=== PATIENT | female | born 1955 | race Caucasian/White ===

== ENCOUNTER 2018-01-21 14:15 | Emergency (ER) | payer MEDICARE, MEDICAID ==
[~2018-01-21 14:15] MED LIST: CEPH-460 PO; INSU1.2I SQ; LIPI40TA PO; LYRI200C PO; METF-382 PO; PAXI40TA PO; PHEN0.4T PO; PROM25TA5 PO; SERO200T PO
[2018-01-21 14:36] VITALS: BP 145/90; PULSE 76; RESP 16; TEMP 98.5; O2SAT 95
[2018-01-21 16:33] LABS: AUTOMATED NEUTROPHIL # 9.3 TH/MM3 (1.8-7.7); BASOPHIL % 0.2 % (0.0-2.0); HEMATOCRIT 43.8 % (35.0-46.0); LYMPH % 7.8 % (9.0-44.0); LYMPHOCYTE # 0.9 TH/MM3 (1.0-4.8); MEAN CELL VOLUME 90.6 FL (80.0-100.0); MEAN CORPUSCULAR HGB CONC 34.2 % (32.0-36.0); MEAN PLATELET VOLUME 7.9 FL (7.0-11.0); MONO % 8.5 % (0.0-8.0); MONOCYTE # 0.9 TH/MM3 (0-0.9); NEUT % 83.5 % (16.0-70.0); PLATELET COUNT 284 TH/MM3 (150-450); RED BLOOD COUNT 4.84 MIL/MM3 (4.00-5.30); RED CELL DISTRIBUTION WIDTH 13.8 % (11.6-17.2); WHITE BLOOD COUNT 11.1 TH/MM3 (4.0-11.0)
[2018-01-21 16:43] LABS: BACTERIA, URINE MANY /hpf; BILIRUBIN, URINE NEG (NEG); BLOOD, URINE MOD (NEG); GLUCOSE,URINE 70 mg/dL (NEG); HYALINE CAST, URINE 2 /lpf (RARE); KETONE, URINE NEG (NEG); MUCUS URINE FEW /lpf (OCC); NITRITE,URINE NEG (NEG); SQUAMOUS EPITHELIAL CELL URINE 2 /hpf (0-5); URINE COLOR YELLOW (YELLW/STRAW); URINE LEUKOCYTE ESTERASE NEG (NEG)
[2018-01-21 16:45] LABS: PROTHROMBIN TIME - PATIENT 10.3 SEC (9.8-11.6)
[2018-01-21 17:01] LABS: ALBUMIN 4.2 GM/DL (3.4-5.0); AST (GOT) 70 U/L (15-37); BICARBONATE 27.5 MEQ/L (21.0-32.0); BLOOD UREA NITROGEN 10 MG/DL (7-18); CALCIUM 9.5 MG/DL (8.5-10.1); CHLORIDE 104 MEQ/L (98-107); CREATININE 0.94 MG/DL (0.50-1.00); GLOMERULAR FILTRATION RATE 61 ML/MIN (>89); GLUCOSE,RANDOM 145 MG/DL (74-106); SODIUM (NA) 140 MEQ/L (136-145)
[2018-01-21 17:03] LABS: ALKALINE PHOSPHATASE 136 U/L (45-117); ALT (GPT) 94 U/L (10-53); TOTAL BILIRUBIN ADULT 0.3 MG/DL (0.2-1.0); TOTAL PROTEIN 8.3 GM/DL (6.4-8.2)
[2018-01-21] MEDS ORDERED: SODIUM CHLOR 0.9% 1000 ML INJ 1,000 ML IV SCH (17:35)
[2018-01-21] MEDS ORDERED: FAMOTIDINE 20 MG/2 ML VIAL IV PUSH ONE (17:45)
[2018-01-21] MEDS ORDERED: ONDANSETRON HCL 4 MG/2 ML VIAL IVP ONE (17:45)
[2018-01-21] MEDS ORDERED: MORPHINE SULFATE 4 MG/ML INJ IV PUSH ONE (17:45)
[2018-01-21] MEDS ORDERED: SODIUM CHLORIDE 0.9% FLUSH 10 ML FLUSH IV FLUSH PRN (17:45)
--- NOTE | 2018-01-21 17:47 | PD ---
HPI Chief Complaint: Abdominal Pain Time Seen by Provider: 17:28 Travel History International Travel<30 days: No Contact w/Intl Traveler<30days: No History of Present Illness HPI The patient is a 62-year-old female who presents to the emergency department via private vehicle for abdominal pain. Patient is a 3 day history of abdominal pain which is located mostly in epigastrium, nonradiating, but is associated with nausea and vomiting. Patient does note decreased appetite secondary to intractable nausea and vomiting. The patient denies any diarrhea or lower abdominal pain. The patient does have a previous history of cholecystectomy, appendectomy, and section. She denies any known history of pancreatitis. The patient also notes a headache, fever of 100.4 yesterday, and some generalized fatigue. She denies any new cough, but does have a history of chronic cough secondary to tobacco use. The patient's last cigarette was 2 days ago. The patient denies any dysuria, frequency, or urgency. There are no sick family members at home with similar symptoms. The patient did receive an influenza vaccination this year. PFSH Past Medical History COPD: Yes Diabetes: Yes Diminished Hearing: No Fibromyalgia: Yes Immunizations Current: Yes Past Surgical History Appendectomy: Yes Section: Yes (X3) Cholecystectomy: Yes Joint Replacement: Yes (BILATERAL KNEE REPLACEMENTS) Social History Alcohol Use: No Tobacco Use: Yes (1/2 ppd) Substance Use: No Allergies-Medications (Allergen,Severity, Reaction): Coded Allergies: aspirin (Unverified Adverse Reaction, Intermediate, HIVES, 05/29/17) ibuprofen (Unverified Adverse Reaction, Intermediate, HIVES, 05/29/17) Reported Meds & Prescriptions Reported Meds & Active Scripts Active Pyridium (Phenazopyridine HCl) 100 Mg Tab 100 Mg PO Q8H PRN Ventolin Hfa 18 GM Inh (Albuterol Sulfate) 90 Mcg/Act Aer 2 Puff INH Q4-6H PRN Phenergan (Promethazine HCl) 25 Mg Tablet 25 Mg PO Q6H PRN Keflex (Cephalexin) 500 Mg Capsule 500 Mg PO Q6H 10 Days Reported Aurelio Sierra Pen Inj (Insulin Glargine) 300 Unit/Ml Pen 1 Units SQ Seroquel (Quetiapine Fumarate) 200 Mg Tab 200 Mg PO HS Lyrica (Pregabalin) 200 Mg Cap 200 Mg PO BID Metformin ER (Metformin HCl) 1,000 Mg Yvonne 1,000 Mg PO BID With evening meal Lipitor (Atorvastatin Calcium) 40 Mg Tab 40 Mg PO HS Review of Systems Except as stated in HPI: all other systems reviewed are Neg General / Constitutional: Positive: Fever HENT: Positive: Headaches Cardiovascular: No: Chest Pain or Discomfort Respiratory: Positive: Cough, Shortness of Breath Gastrointestinal: Positive: Nausea, Vomiting, Abdominal Pain, No: Diarrhea Genitourinary: No: Dysuria Musculoskeletal: Positive: Weakness Neurologic: No: Dizziness Physical Exam Narrative GENERAL: Awake, alert, pleasant 62-year-old female who appears her stated age and is in no acute respiratory distress. SKIN: Focused skin assessment warm/dry. HEAD: Atraumatic. Normocephalic. EYES: Pupils equal and round. No scleral icterus. No injection or drainage. ENT: No nasal bleeding or discharge. Slightly dry mucous membranes. NECK: Trachea midline. No JVD. CARDIOVASCULAR: Regular rate and rhythm. No murmur appreciated. RESPIRATORY: No accessory muscle use. Clear to auscultation. Breath sounds equal bilaterally. GASTROINTESTINAL: Abdomen soft, tender to palpation epigastrium. No guarding or rigidity. MUSCULOSKELETAL: No obvious deformities. No clubbing. No cyanosis. No edema. Well-healed scar over the knees bilaterally. NEUROLOGICAL: Awake and alert. No obvious cranial nerve deficits. Motor grossly within normal limits. Normal speech. PSYCHIATRIC: Appropriate mood and affect; insight and judgment normal. Data Data Last Documented VS Vital Signs Date Time Temp Pulse Resp B/P (MAP) Pulse Ox O2 Delivery O2 Flow Rate FiO2 01/21/18 23:07 01/21/18 23:00 72 23 98 Room Air 01/21/18 14:36 98.5 Orders Orders Complete Blood Count With Diff (01/21/18 14:38) Comprehensive Metabolic Panel (01/21/18 14:38) Lipase (01/21/18 14:38) Lactic Acid (01/21/18 14:38) Urinalysis - C+S If Indicated (01/21/18 14:38) Prothrombin Time / Inr (Pt) (01/21/18 14:39) Act Partial Throm Time (Ptt) (01/21/18 14:39) Urine Culture (01/21/18 16:10) Ct Abd/Pel W/O Iv Contrast (01/21/18 17:35) Iv Access Insert/Monitor (01/21/18 17:35) Ecg Monitoring (01/21/18 17:35) Oximetry (01/21/18 17:35) Morphine Inj (Morphine Inj) (01/21/18 17:45) Ondansetron Inj (Zofran Inj) (01/21/18 17:45) Sodium Chlor 0.9% 1000 Ml Inj (Ns 1000 M (01/21/18 17:35) Sodium Chloride 0.9% Flush (Ns Flush) (01/21/18 17:45) Electrocardiogram (01/21/18 17:35) Chest, Single Ap (01/21/18 17:35) Famotidine Inj (Pepcid Inj) (01/21/18 17:45) Troponin I (01/21/18 17:35) Creatine Kinase (Cpk) (01/21/18 17:35) CKMB (01/21/18 16:25) CKMB% (01/21/18 16:25) Morphine Inj (Morphine Inj) (01/21/18 20:45) Albuterol-Ipratropium Neb (Duoneb Neb) (01/21/18 20:45) Ceftriaxone Inj (Rocephin Inj) (01/21/18 20:45) D-Dimer (01/21/18 21:06) Ct Pulmonary Angiogram (01/21/18 ) Iohexol 350 Inj (Omnipaque 350 Inj) (01/21/18 22:44) Azithromycin (Zithromax) (01/21/18 23:00) Ed Discharge Order (01/21/18 22:59) Labs Laboratory Tests Test 01/21/18 16:10 01/21/18 16:20 01/21/18 16:25 01/21/18 21:30 Urine Color YELLOW Urine Turbidity CLEAR Urine pH 6.0 Urine Specific [place] 1.028 Urine Protein 100 mg/dL Urine Glucose (UA) 70 mg/dL Urine Ketones NEG mg/dL Urine Occult Blood MOD Urine Nitrite NEG Urine Bilirubin NEG Urine Urobilinogen LESS THAN 2.0 MG/DL Urine Leukocyte Esterase NEG Urine RBC 41 /hpf Urine WBC 3 /hpf Urine Squamous Epithelial Cells 2 /hpf Urine Bacteria MANY /hpf Urine Hyaline Casts 2 /lpf Urine Mucus FEW /lpf Microscopic Urinalysis Comment CULTURE INDICATED Lactic Acid Level 1.8 mmol/L White Blood Count 11.1 TH/MM3 Red Blood Count 4.84 MIL/MM3 Hemoglobin 15.0 GM/DL Hematocrit 43.8 % Mean Corpuscular Volume 90.6 FL Mean Corpuscular Hemoglobin 31.0 PG Mean Corpuscular Hemoglobin Concent 34.2 % Red Cell Distribution Width 13.8 % Platelet Count 284 TH/MM3 Mean Platelet Volume 7.9 FL Neutrophils (%) (Auto) 83.5 % Lymphocytes (%) (Auto) 7.8 % Monocytes (%) (Auto) 8.5 % Eosinophils (%) (Auto) 0.0 % Basophils (%) (Auto) 0.2 % Neutrophils # (Auto) 9.3 TH/MM3 Lymphocytes # (Auto) 0.9 TH/MM3 Monocytes # (Auto) 0.9 TH/MM3 Eosinophils # (Auto) 0.0 TH/MM3 Basophils # (Auto) 0.0 TH/MM3 CBC Comment DIFF FINAL Differential Comment Prothrombin Time 10.3 SEC Prothromb Time International Ratio 1.0 RATIO Activated Partial Thromboplast Time 28.2 SEC Blood Urea Nitrogen 10 MG/DL Creatinine 0.94 MG/DL Random Glucose 145 MG/DL Total Protein 8.3 GM/DL Albumin 4.2 GM/DL Calcium Level 9.5 MG/DL Alkaline Phosphatase 136 U/L Aspartate Amino Transf (AST/SGOT) 70 U/L Alanine Aminotransferase (ALT/SGPT) 94 U/L Total Bilirubin 0.3 MG/DL Sodium Level 140 MEQ/L Potassium Level 3.4 MEQ/L Chloride Level 104 MEQ/L Carbon Dioxide Level 27.5 MEQ/L Anion Gap 9 MEQ/L Estimat Glomerular Filtration Rate 61 ML/MIN Total Creatine Kinase 542 U/L Creatine Kinase MB 3.5 NG/ML Creatine Kinase MB % 0.6 % Troponin I LESS THAN 0.02 NG/ML Lipase 103 U/L D-Dimer Quantitative (PE/DVT) 0.66 MG/L FEU [facility] Medical Decision Making Medical Screen Exam Complete: Yes Emergency Medical Condition: Yes Medical Record Reviewed: Yes Differential Diagnosis Differential diagnosis includes gastritis, pancreatitis, peptic ulcer disease, nephrolithiasis, hydronephrosis, dehydration, electrolyte abnormality, retained biliary stone, inferior myocardial infarction, lower lobe pneumonia. Narrative Course IV was established, labs are drawn and sent, and the patient was placed on cardiac telemetry monitoring and continuous pulse oximetry monitoring. The patient was administered morphine, Zofran, and Pepcid with IV fluids for her symptoms. Noncontrast CT of the abdomen and pelvis was performed. White count is minimally elevated, LFTs are mildly elevated, however, lipase is unremarkable. UA does reveal RBCs but no WBCs. The patient was signed out to the oncoming physician at [address] the abdomen and pelvis pending. Diagnosis Primary Impression: Abdominal pain Qualified Codes: R10.13 - Epigastric pain Scripts Phenazopyridine (Pyridium) 100 Mg Tab 100 MG PO Q8H Y for DYSURIA, #6 TAB 0 Refills Prov: Gris Clark MD 01/21/18 Albuterol 18 GM Inh (Ventolin Hfa 18 GM Inh) 90 Mcg/Act Aer 2 PUFF INH Q4-6H Y for SHORTNESS OF BREATH, #1 INHALER 0 Refills Prov: Gris Clark MD 01/21/18 Promethazine (Phenergan) 25 Mg Tablet 25 MG PO Q6H Y for NAUSEA OR VOMITING, #4 TAB 0 Refills Prov: Gris Clark MD 01/21/18 Cephalexin (Keflex) 500 Mg Capsule 500 MG PO Q6H for Infection for 10 Days, #40 CAP 0 Refills Prov: Gris Clark MD 01/21/18 Condition: Stable Kong Chamberlain MD Jan 21, 2018 17:47
[2018-01-21 17:54] VITALS: BP 154/70; PULSE 64; RESP 18; O2SAT 96; O2SAT 97
--- NOTE | 2018-01-21 18:33 | RADRPT ---
EXAM DATE/TIME: 01/21/2018 18:10 [facility] COMPARISON: CHEST SINGLE AP, September 07, 2016, 19:11. INDICATIONS : Chest pain today. MEDICAL HISTORY : Hypertension. Diabetes mellitus type 2. SURGICAL HISTORY : Cholecystectomy. Appendectomy. section. ENCOUNTER: Initial ACUITY: 1 day PAIN SCORE: 8/10 LOCATION: Bilateral chest FINDINGS: A single view of the chest demonstrates the lungs to be symmetrically aerated without evidence of mas s, infiltrate or effusion. The cardiomediastinal contours are unremarkable. Osseous structures are intact. CONCLUSION: No acute disease. Wilian Gillis MD on January 21, 2018 at 18:30 Board Certified Radiologist. This report was verified electronically.
--- NOTE | 2018-01-21 19:09 | PD ---
Physical Exam Date Seen by Provider: Jan 21, 2018 Time Seen by Provider: 19:08 Narrative Accepted transfer of care from Dr. Chamberlain GENERAL: Well-developed well-nourished obese female no acute distress no respiratory distress. SKIN: Warm and dry. HEAD: Normocephalic. EYES: No scleral icterus. No injection or drainage. NECK: Supple, trachea midline. No JVD or lymphadenopathy. CARDIOVASCULAR: Regular rate and rhythm without murmurs, gallops, or rubs. RESPIRATORY: Breath sounds equal bilaterally mildly diminished bilaterally. No accessory muscle use. GASTROINTESTINAL: Abdomen soft, non-tender, nondistended. MUSCULOSKELETAL: No cyanosis, or edema. BACK: Nontender without obvious deformity. No CVA tenderness. Data Data Last Documented VS Vital Signs Date Time Temp Pulse Resp B/P (MAP) Pulse Ox O2 Delivery O2 Flow Rate FiO2 01/21/18 18:08 18 01/21/18 17:54 97 Room Air 01/21/18 17:54 64 154/70 (98) 01/21/18 14:36 98.5 Orders Orders Complete Blood Count With Diff (01/21/18 14:38) Comprehensive Metabolic Panel (01/21/18 14:38) Lipase (01/21/18 14:38) Lactic Acid (01/21/18 14:38) Urinalysis - C+S If Indicated (01/21/18 14:38) Prothrombin Time / Inr (Pt) (01/21/18 14:39) Act Partial Throm Time (Ptt) (01/21/18 14:39) Urine Culture (01/21/18 16:10) Ct Abd/Pel W/O Iv Contrast (01/21/18 17:35) Iv Access Insert/Monitor (01/21/18 17:35) Ecg Monitoring (01/21/18 17:35) Oximetry (01/21/18 17:35) Morphine Inj (Morphine Inj) (01/21/18 17:45) Ondansetron Inj (Zofran Inj) (01/21/18 17:45) Sodium Chlor 0.9% 1000 Ml Inj (Ns 1000 M (01/21/18 17:35) Sodium Chloride 0.9% Flush (Ns Flush) (01/21/18 17:45) Electrocardiogram (01/21/18 17:35) Chest, Single Ap (01/21/18 17:35) Famotidine Inj (Pepcid Inj) (01/21/18 17:45) Troponin I (01/21/18 17:35) Creatine Kinase (Cpk) (01/21/18 17:35) CKMB (01/21/18 16:25) CKMB% (01/21/18 16:25) Morphine Inj (Morphine Inj) (01/21/18 20:45) Albuterol-Ipratropium Neb (Duoneb Neb) (01/21/18 20:45) Ceftriaxone Inj (Rocephin Inj) (01/21/18 20:45) D-Dimer (01/21/18 21:06) Ct Pulmonary Angiogram (01/21/18 ) Iohexol 350 Inj (Omnipaque 350 Inj) (01/21/18 22:44) Labs Laboratory Tests Test 01/21/18 16:10 01/21/18 16:20 01/21/18 16:25 01/21/18 21:30 Urine Color YELLOW Urine Turbidity CLEAR Urine pH 6.0 Urine Specific [place] 1.028 Urine Protein 100 mg/dL Urine Glucose (UA) 70 mg/dL Urine Ketones NEG mg/dL Urine Occult Blood MOD Urine Nitrite NEG Urine Bilirubin NEG Urine Urobilinogen LESS THAN 2.0 MG/DL Urine Leukocyte Esterase NEG Urine RBC 41 /hpf Urine WBC 3 /hpf Urine Squamous Epithelial Cells 2 /hpf Urine Bacteria MANY /hpf Urine Hyaline Casts 2 /lpf Urine Mucus FEW /lpf Microscopic Urinalysis Comment CULTURE INDICATED Lactic Acid Level 1.8 mmol/L White Blood Count 11.1 TH/MM3 Red Blood Count 4.84 MIL/MM3 Hemoglobin 15.0 GM/DL Hematocrit 43.8 % Mean Corpuscular Volume 90.6 FL Mean Corpuscular Hemoglobin 31.0 PG Mean Corpuscular Hemoglobin Concent 34.2 % Red Cell Distribution Width 13.8 % Platelet Count 284 TH/MM3 Mean Platelet Volume 7.9 FL Neutrophils (%) (Auto) 83.5 % Lymphocytes (%) (Auto) 7.8 % Monocytes (%) (Auto) 8.5 % Eosinophils (%) (Auto) 0.0 % Basophils (%) (Auto) 0.2 % Neutrophils # (Auto) 9.3 TH/MM3 Lymphocytes # (Auto) 0.9 TH/MM3 Monocytes # (Auto) 0.9 TH/MM3 Eosinophils # (Auto) 0.0 TH/MM3 Basophils # (Auto) 0.0 TH/MM3 CBC Comment DIFF FINAL Differential Comment Prothrombin Time 10.3 SEC Prothromb Time International Ratio 1.0 RATIO Activated Partial Thromboplast Time 28.2 SEC Blood Urea Nitrogen 10 MG/DL Creatinine 0.94 MG/DL Random Glucose 145 MG/DL Total Protein 8.3 GM/DL Albumin 4.2 GM/DL Calcium Level 9.5 MG/DL Alkaline Phosphatase 136 U/L Aspartate Amino Transf (AST/SGOT) 70 U/L Alanine Aminotransferase (ALT/SGPT) 94 U/L Total Bilirubin 0.3 MG/DL Sodium Level 140 MEQ/L Potassium Level 3.4 MEQ/L Chloride Level 104 MEQ/L Carbon Dioxide Level 27.5 MEQ/L Anion Gap 9 MEQ/L Estimat Glomerular Filtration Rate 61 ML/MIN Total Creatine Kinase 542 U/L Creatine Kinase MB 3.5 NG/ML Creatine Kinase MB % 0.6 % Troponin I LESS THAN 0.02 NG/ML Lipase 103 U/L D-Dimer Quantitative (PE/DVT) 0.66 MG/L FEU [facility] Medical Record Reviewed: Yes Supervised Visit with LIANE: No Interpretation(s) CK total: 542, elevated; MB%: 0.6%, not elevated Troponin I: Less than 0.02, not elevated EKG: Normal sinus rhythm right bundle branch block, no acute ST elevation or injury pattern; no comparison EKG Last Impressions Chest X-Ray 01/21/181734 Signed Impressions: Service Date/Time: Sunday, January 21, 2018 18:10 - CONCLUSION: No acute disease. Wilian Gillis MD Abdomen/Pelvis CT 01/21/18 3296 Signed Impressions: Service Date/Time: Sunday, January 21, 2018 19:16 - CONCLUSION: Unremarkable noncontrast exam. Wilian Gillis MD CBC & BMP Diagram 01/21/18 16:25 Total Protein 8.3 H, Albumin 4.2, Calcium Level 9.5, Alkaline Phosphatase 136 H , Aspartate Amino Transf (AST/SGOT) 70 H, Alanine Aminotransferase (ALT/SGPT) 94 H, Total Bilirubin 0.3 Vital Signs Date Time Temp Pulse Resp B/P (MAP) Pulse Ox O2 Delivery O2 Flow Rate FiO2 01/21/18 18:08 18 01/21/18 17:54 18 97 Room Air 01/21/18 17:54 64 18 154/70 (98) 96 Room Air 01/21/18 14:36 98.5 76 16 145/90 (108) 95 Urinalysis: RBCs 42, mod blood, many bacteria; cx indicated CT pulmonary angiogram: CONCLUSION: 1. No evidence of pulmonary emboli. 2. Multiple focal areas of groundglass opacity in the right lung most likely infectious. 3. Single small 1 mm noncalcified pulmonary nodule in the right middle lobe as well as 2 small noncalcified pulmonary nodules in the left lower lobe. A [address] is recommended. Wilian Gillis MD on January 21, 2018 at 22:43 Board Certified Radiologist. This report was verified electronically. Differential Diagnosis Accepted transfer of care from Dr. Chamberlain; please refer to his dictation Narrative Course Accepted transfer of care from Dr. Chamberlain; follow up labs, CT, and disposition Imaging study and labs resulted patient identified to have elevated total CK of 542 with MB percent of 0.6% not elevated patient is on a statin and patient has only moderate blood with 42 RBCs on urinalysis; suspect patient has secondary adverse effect from statin versus acute rhabdomyolysis; patient also identified to have many bacteria on urinalysis and it treated with first dose of antibiotic in the emergency department. CT abdomen and pelvis noncontrast reveals no acute intra-abdominal or pelvic abnormality per reading radiologist. Renal function is within normal range BUN 10, creatinine 0.94, and GFR 61, decreased. Patient CBC with automated differential total white cell count is 11 ,100 essentially within normal limits 83% neutrophils by automated differential lactic acid is 1.8, not elevated. Patient complains of persistent left flank discomfort but no percussible pain on exam; patient be treated for UTI, early pyelonephritis with IV antibiotic and encouraged to drink fluids and to have a repeat CK level checked in 2 days who her primary care provider's office or to the emergency department. Patient will be discharged with prescription for Keflex 500 every 610 days and aware that culture will be resulted in 48 hours. Patient's had no fever or chills. Patient also has history of COPD diminished breath sounds to auscultation administered 1 DuoNeb updraft. Patient discontinued tobacco use 1 week ago. Chest x-ray reveals no infiltrate and lung bases on CT abdomen pelvis noncontrast reveals no acute pulmonary process as available by limited imaging. Patient does not have access to her rescue inhaler albuterol, refill provided. CT pulmonary angiogram performed due to elevated d-dimer and right bundle branch block on EKG and with shortness of breath --study is negative for PE but does show multiple ground glass opacities/infiltrates in the right base concerning for infectious process. Patient has received Rocephin as a one-time dose also get a one-time dose of azithromycin and is being discharged with prescription for Keflex. Diagnosis Primary Impression: UTI (urinary tract infection) Additional Impressions: Flank pain Elevated CPK Medication refill History of COPD Pneumonia Infiltrate of lung present on imaging of chest Referrals: Primary Care Physician 1 day Patient Instructions: Narcotic given in the ED, General Instructions Additional Instruction: Take antibiotic as prescribed Take Phenergan as prescribed as needed for nausea and/or vomiting Take acetaminophen/Tylenol as needed for pain or for fever 100.4F or greater Follow-up with your primary care provider call office in a.m. to schedule follow -up appointment this week as you will need to have repeat blood work regarding your CK and hold taking Lipitor until seen in follow-up this week by her primary care provider as well as increase fluid hydration Return to the emergency department for any concerns or change in condition Med/Other Pt SpecificInfo: Prescription(s) given Scripts Phenazopyridine (Pyridium) 100 Mg Tab 100 MG PO Q8H Y for DYSURIA, #6 TAB 0 Refills Prov: Gris Clark MD 01/21/18 Albuterol 18 GM Inh (Ventolin Hfa 18 GM Inh) 90 Mcg/Act Aer 2 PUFF INH Q4-6H Y for SHORTNESS OF BREATH, #1 INHALER 0 Refills Prov: Gris Clark MD 01/21/18 Promethazine (Phenergan) 25 Mg Tablet 25 MG PO Q6H Y for NAUSEA OR VOMITING, #4 TAB 0 Refills Prov: Gris Clark MD 01/21/18 Cephalexin (Keflex) 500 Mg Capsule 500 MG PO Q6H for Infection for 10 Days, #40 CAP 0 Refills Prov: Gris Clark MD 01/21/18 Disposition: 01 DISCHARGE HOME Condition: Stable Gris Clark MD Jan 21, 2018 19:09
--- NOTE | 2018-01-21 19:32 | RADRPT ---
EXAM DATE/TIME: 01/21/2018 19:16 [facility] COMPARISON: CT ABDOMEN & PELVIS W CONTRAST, July 17, 2016, 18:28. INDICATIONS : Abdomen pain. ORAL CONTRAST: No oral contrast ingested. RADIATION DOSE: 11.02 CTDIvol (mGy) MEDICAL HISTORY : Chronic obstructive pulmonary disease. SURGICAL HISTORY : Appendectomy. section. ENCOUNTER: Initial ACUITY: 1 day PAIN SCALE: 5/10 LOCATION: Bilateral chest TECHNIQUE: Volumetric scanning of the abdomen and pelvis was performed. Using automated exposure control and ad justment of the mA and/or kV according to patient size, radiation dose was kept as low as reasonably achievable to obtain optimal diagnostic quality images. DICOM format image data is available electro nically for review and comparison. FINDINGS: LOWER LUNGS: The visualized lower lungs are clear. LIVER: Homogeneous density without lesion. There is no dilation of the biliary tree. Status post cholecyste ctomy. SPLEEN: Normal size without lesion. PANCREAS: Within normal limits. KIDNEYS: Normal in size and shape. There is no mass, stone, or hydronephrosis. ADRENAL GLANDS: Within normal limits. VASCULAR: There is no aortic aneurysm. BOWEL/MESENTERY: The stomach, small bowel, and colon demonstrate no acute abnormality. There is no free intraperitone al air or fluid. ABDOMINAL WALL: Within normal limits. RETROPERITONEUM: There is no lymphadenopathy. BLADDER: No wall thickening or mass. REPRODUCTIVE: Within normal limits. INGUINAL: There is no lymphadenopathy or hernia. MUSCULOSKELETAL: Within normal limits for patient age. CONCLUSION: Unremarkable noncontrast exam. Wilian Gillis MD on January 21, 2018 at 19:26 Board Certified Radiologist. This report was verified electronically.
[2018-01-21 19:47] LABS: TROPONIN I LESS THAN 0.02 NG/ML (0.02-0.05)
[2018-01-21] MEDS ORDERED: RESP: ALBUTEROL 2.5 MG/IPRATROPIUM 0.5 MG NEB (SCH) NEB ONE (20:45)
[2018-01-21] MEDS ORDERED: cefTRIAXone INJ 1,000 MG in SODIUM CHLORIDE 0.9% INJ 100 ML IV ONE (20:45)
[2018-01-21] MEDS ORDERED: MORPHINE SULFATE 2 MG/ML SYRINGE IV PUSH ONE (20:45)
[2018-01-21] MEDS ORDERED: CEPH-460 PO (21:01)
[2018-01-21] MEDS ORDERED: PROM25TA10 PO (21:01)
[2018-01-21] MEDS ORDERED: PHEN0.4T PO (21:04)
[2018-01-21] MEDS ORDERED: VENTAER INH (21:04)
[2018-01-21] MEDS ORDERED: IOHEXOL 350 MG/ML 10 ML VIAL (for RAD DIAG) IVCONTRAST ONE (22:44)
--- NOTE | 2018-01-21 22:50 | RADRPT ---
EXAM DATE/TIME: 01/21/2018 22:25 [facility] COMPARISON: CT THORAX W CONTRAST, July 17, 2016, 18:28. CT ABDOMEN & PELVIS W CONTRAST, July 17, 2016, 18: 28. CHEST SINGLE AP, January 21, 2018, 18:10. INDICATIONS : Shortness of breath. IV CONTRAST: 75 cc Omnipaque 350 (iohexol) IV RADIATION DOSE: 25.06 CTDIvol (mGy) MEDICAL HISTORY : Chronic obstructive pulmonary disease. SURGICAL HISTORY : Appendectomy. section. ENCOUNTER: Initial ACUITY: 1 day PAIN SCALE: 0/10 LOCATION: Bilateral chest TECHNIQUE: Volumetric scanning of the chest was performed using a pulmonary embolism protocol MIP images were re constructed. Using automated exposure control and adjustment of the mA and/or kV according to patien t size, radiation dose was kept as low as reasonably achievable to obtain optimal diagnostic quality images. DICOM format image data is available electronically for review and comparison. Follow-up recommendations for detected pulmonary nodules are based at a minimum on nodule size and pa tient risk factors according to Fleischner Society Guidelines. FINDINGS: PULMONARY ARTERIES: No filling defects are seen in the pulmonary arteries through the segmental level. LUNGS: There is no pneumothorax . There are patchy areas of groundglass opacity in the right upper lobe and right middle lobe as well as the superior segment of the right lower lobe. There are 2 small 2-3 mm n oncalcified pulmonary nodules in the left lower lobe. There is adjacent atelectasis and/or scarring.. There is a tiny noncalcified pulmonary nodule in the right middle lobe on image #50 measuring 4 mm. No concerning pulmonary nodule is visualized. PLEURAE: There is no pleural thickening or pleural effusion. MEDIASTINUM: There is good visualization of the great vessels of the middle mediastinum. No evidence of mediastin al or hilar adenopathy/mass. MUSCULOSKELETAL: Within normal limits for patient age. MISCELLANEOUS: The visualized upper abdominal organs demonstrate no acute abnormality. There is hepatic steatosis in volving the liver. The patient is status post cholecystectomy. The left adrenal gland is mildly thick ened and nodular. This is unchanged in appearance. CONCLUSION: 1. No evidence of pulmonary emboli. 2. Multiple focal areas of groundglass opacity in the right lung most likely infectious. 3. Single small 1 mm noncalcified pulmonary nodule in the right middle lobe as well as 2 small noncal cified pulmonary nodules in the left lower lobe. A [address] is recommended. Wilian Gillis MD on January 21, 2018 at 22:43 Board Certified Radiologist. This report was verified electronically.
[2018-01-21 23:00] VITALS: BP 148/64; PULSE 72; RESP 23; O2SAT 98
[2018-01-21] MEDS ORDERED: AZITHROMYCIN 250 MG TAB PO ONE (23:00)
--- NOTE | 2018-01-22 21:29 | EKG ---
Date Performed: 01/21/2018 Time Performed: 18:14:55 PTAGE: 62 years EKG: Sinus rhythm RIGHT BUNDLE BRANCH BLOCK ABNORMAL ECG NO PREVIOUS TRACING DOCTOR: Ronan Borrero Interpretating Date/Time 01/22/2018 21:28:30
== END 2018-01-21 23:10 | disposition home or self-care (01) ==
LOC: NEPC 14:15
DX: N39.0 Urinary tract infection, site not specified (principal); B96.1 Klebsiella pneumoniae [K. pneumoniae] as the cause of diseases classified elsewhere; R74.8 Abnormal levels of other serum enzymes; J18.9 Pneumonia, unspecified organism; J44.0 Chronic obstructive pulmonary disease with (acute) lower respiratory infection; R94.31 Abnormal electrocardiogram [ECG] [EKG]; R06.02 Shortness of breath; E11.9 Type 2 diabetes mellitus without complications; F17.200 Nicotine dependence, unspecified, uncomplicated
CPT/HCPCS: 71045; 71275; 74176; 80053; 81001; 82550; 82552; 83605; 83690; 84484; 85025; 85379; 85610; 85730; 87077; 87086; 87186; 93005; 94664; 96361; 96365; 96375; 96376; 99285; J0696; J2270; J2405; J7030; Q9967

== ENCOUNTER 2018-01-31 22:27 | Emergency (ER) | payer MEDICAID, MEDICARE ==
[~2018-01-31] VITALS: Ht 165.1 cm; Wt 100.0 kg
[~2018-01-31 22:27] MED LIST changes: -PAXI40TA PO; +PROM25TA10 PO; -PROM25TA5 PO; +VENTAER INH
[2018-01-31 23:00] VITALS: BP 139/74; PULSE 74; RESP 24; TEMP 98.4; O2SAT 95
[2018-01-31 23:04] VITALS: BP 139/74; PULSE 74; RESP 30; TEMP 98.4; O2SAT 94
[2018-01-31] MEDS ORDERED: MORPHINE SULFATE 2 MG/ML SYRINGE IV PUSH ONE (23:45)
[2018-01-31] MEDS ORDERED: ONDANSETRON HCL 4 MG/2 ML VIAL IV PUSH ONE (23:45)
[2018-01-31] MEDS ORDERED: RESP: ALBUTEROL 2.5 MG/IPRATROPIUM 0.5 MG NEB (SCH) INH ONE (23:45)
--- NOTE | 2018-01-31 23:47 | PD ---
HPI Chief Complaint: General Weakness Time Seen by Provider: 23:29 Travel History International Travel<30 days: No Contact w/Intl Traveler<30days: No Traveled to known affect area: No History of Present Illness HPI 62-year-old female complains of generalized malaise and weakness and shortness of breath. Patient was seen in emergency room 10 days ago with diagnosis of UTI , flank pain, elevated CPK, pneumonia and history of COPD. Patient was given prescription for Pyridium, Keflex, renal inhaler, Phenergan. Patient states that she has taken the medications as directed. Patient was seen by personal physician twice since then and also was seen in the emergency room in [place] once since then. Patient states that she was given IV fluid treatment and discharged. Patient states that she has persistent nausea vomiting diarrhea, dizziness, headache, muscle spasm, shortness of breath and fever since then. Patient states that she stopped smoking about 13 days ago. Patient has history of diabetes and hyperlipidemia. Patient states that she has stabbing pain on anterior chest and back area. Patient denies any recent injury. On a scale of 1-10 the pain is an 8. PFSH Past Medical History COPD: Yes Diabetes: Yes Patient Takes Glucophage: Yes Diminished Hearing: No Fibromyalgia: Yes Immunizations Current: Yes Past Surgical History Appendectomy: Yes Section: Yes (X3) Cholecystectomy: Yes Joint Replacement: Yes (BILATERAL KNEE REPLACEMENTS) Social History Alcohol Use: No Tobacco Use: Yes (1/2 ppd quit for 1 month) Substance Use: No Allergies-Medications (Allergen,Severity, Reaction): Coded Allergies: aspirin (Unverified Adverse Reaction, Intermediate, HIVES, 01/31/18) ibuprofen (Unverified Adverse Reaction, Intermediate, HIVES, 01/31/18) Reported Meds & Prescriptions Reported Meds & Active Scripts Active Ventolin Hfa 18 GM Inh (Albuterol Sulfate) 90 Mcg/Act Aer 2 Puff INH Q4-6H PRN Keflex (Cephalexin) 500 Mg Capsule 500 Mg PO Q6H 10 Days Reported Aurelio Sierra Pen Inj (Insulin Glargine) 300 Unit/Ml Pen 1 Units SQ Seroquel (Quetiapine Fumarate) 200 Mg Tab 200 Mg PO HS Lyrica (Pregabalin) 200 Mg Cap 200 Mg PO BID Metformin ER (Metformin HCl) 1,000 Mg Yvonne 1,000 Mg PO BID With evening meal Review of Systems General / Constitutional: No: Fever Eyes: No: Visual changes HENT: No: Headaches Cardiovascular: Positive: Chest Pain or Discomfort Respiratory: Positive: Shortness of Breath Gastrointestinal: Positive: Nausea, Vomiting, Diarrhea, Abdominal Pain Genitourinary: No: Dysuria Musculoskeletal: No: Pain Skin: No Rash Neurologic: No: Weakness Psychiatric: No: Depression Endocrine: No: Polydipsia Hematologic/Lymphatic: No: Easy Bruising Physical Exam Narrative GENERAL: Well-nourished, well-developed patient. SKIN: Focused skin assessment warm/dry. HEAD: Normocephalic. EYES: No scleral icterus. No injection or drainage. NECK: Supple, trachea midline. No JVD or lymphadenopathy. CARDIOVASCULAR: Regular rate and rhythm without murmurs, gallops, or rubs. RESPIRATORY: Breath sounds equal bilaterally. No accessory muscle use. Patient has mild to moderate expiratory wheezes bilaterally. No rhonchi. GASTROINTESTINAL: Abdomen soft, non-tender, nondistended. MUSCULOSKELETAL: No cyanosis, or edema. BACK: Nontender without obvious deformity. No CVA tenderness. Neurologic exam normal. Data Data Last Documented VS Vital Signs Date Time Temp Pulse Resp B/P (MAP) Pulse Ox O2 Delivery O2 Flow Rate FiO2 01/31/18 23:04 98.4 74 30 139/74 (95) 94 Nasal Cannula 2.00 Orders Orders Electrocardiogram (01/31/18 23:38) Complete Blood Count With Diff (01/31/18 23:38) Comprehensive Metabolic Panel (01/31/18 23:38) Creatine Kinase (Cpk) (01/31/18 23:38) Troponin I (01/31/18 23:38) B-Type Natriuretic Peptide (01/31/18 23:38) Prothrombin Time / Inr (Pt) (01/31/18 23:38) Act Partial Throm Time (Ptt) (01/31/18 23:38) Urinalysis - C+S If Indicated (01/31/18 23:38) Thyroid Stimulating Hormone (01/31/18 23:38) Influenzae A/B Antigen (01/31/18 23:38) Chest, Single Ap (01/31/18 23:38) Iv Access Insert/Monitor (01/31/18 23:38) Ecg Monitoring (01/31/18 23:38) Oximetry (01/31/18 23:38) Albuterol-Ipratropium Neb (Duoneb Neb) (01/31/18 23:45) Morphine Inj (Morphine Inj) (01/31/18 23:45) Ondansetron Inj (Zofran Inj) (01/31/18 23:45) Potassium Chlor 20 Meq Premix (Kcl 20 Me (02/01/18 01:00) Potassium Chloride (Kcl) (02/01/18 01:00) Labs Laboratory Tests Test 01/31/18 23:40 White Blood Count 11.5 TH/MM3 Red Blood Count 4.56 MIL/MM3 Hemoglobin 14.0 GM/DL Hematocrit 41.6 % Mean Corpuscular Volume 91.3 FL Mean Corpuscular Hemoglobin 30.6 PG Mean Corpuscular Hemoglobin Concent 33.5 % Red Cell Distribution Width 13.6 % Platelet Count 345 TH/MM3 Mean Platelet Volume 8.7 FL Neutrophils (%) (Auto) 67.3 % Lymphocytes (%) (Auto) 25.5 % Monocytes (%) (Auto) 6.0 % Eosinophils (%) (Auto) 0.7 % Basophils (%) (Auto) 0.5 % Neutrophils # (Auto) 7.7 TH/MM3 Lymphocytes # (Auto) 2.9 TH/MM3 Monocytes # (Auto) 0.7 TH/MM3 Eosinophils # (Auto) 0.1 TH/MM3 Basophils # (Auto) 0.1 TH/MM3 CBC Comment DIFF FINAL Differential Comment Prothrombin Time 10.3 SEC Prothromb Time International Ratio 1.0 RATIO Activated Partial Thromboplast Time 20.5 SEC Blood Urea Nitrogen 9 MG/DL Creatinine 0.82 MG/DL Random Glucose 262 MG/DL Total Protein 6.3 GM/DL Albumin 2.9 GM/DL Calcium Level 8.0 MG/DL Alkaline Phosphatase 98 U/L Aspartate Amino Transf (AST/SGOT) 13 U/L Alanine Aminotransferase (ALT/SGPT) 35 U/L Total Bilirubin 0.5 MG/DL Sodium Level 142 MEQ/L Potassium Level 2.7 MEQ/L Chloride Level 106 MEQ/L Carbon Dioxide Level 24.9 MEQ/L Anion Gap 11 MEQ/L Estimat Glomerular Filtration Rate 71 ML/MIN Total Creatine Kinase 120 U/L Troponin I 0.02 NG/ML B-Type Natriuretic Peptide 25 PG/ML Thyroid Stimulating Hormone 3rd Gen 1.270 uIU/ML MDM Medical Decision Making Medical Screen Exam Complete: Yes Emergency Medical Condition: Yes Interpretation(s) 2:31 AM. Last Impressions Chest X-Ray 01/31/18 4128 Signed Impressions: Service Date/Time: Wednesday, January 31, 2018 23:54 - CONCLUSION: No acute disease. Bebeto Mar Jr., MD 2:31 AM. CBC within normal limits. Potassium 2.7. GFR 71. Glucose 262. BNP 25. Influenza AB antigen negative. Differential Diagnosis Differential diagnoses including viral syndrome, tension headache, cluster headache, migraine headache, chest wall pain, pneumonia, UTI, pyelonephritis, sepsis, electrolyte abnormality. Narrative Course 62-year-old female with persistent body ache, nausea vomiting diarrhea, headache , chest wall pain, fever and shortness of breath. History of COPD. Diagnosis Primary Impression: Hypokalemia Additional Impression: Viral syndrome Patient Instructions: General Instructions Additional Instructions: Tylenol for aching pain. Take potassium as directed. Follow-up with personal physician. Advised potassium rich diet. Return if worse. Med/Other Pt SpecificInfo: Prescription(s) given Scripts Ondansetron Odt (Zofran Odt) 4 Mg Tab 4 MG SL Q6HR Y for Nausea/Vomiting, #10 TAB 0 Refills Prov: Alejandro Abraham MD 02/01/18 Potassium Chloride ER (Potassium Chloride ER) 10 Meq Cap 10 MEQ PO DAILY for Electrolyte Replacement, #10 CAP 0 Refills Prov: Alejandro Abraham MD 02/01/18 Disposition: 01 DISCHARGE HOME Condition: Stable Alejandro Abraham MD Jan 31, 2018 23:47
[2018-02-01 00:26] LABS: AUTOMATED NEUTROPHIL # 7.7 TH/MM3 (1.8-7.7); BASOPHIL # 0.1 TH/MM3 (0-0.2); BASOPHIL % 0.5 % (0.0-2.0); EOSINOPHIL # 0.1 TH/MM3 (0-0.4); EOSINOPHIL % 0.7 % (0.0-4.0); HEMATOCRIT 41.6 % (35.0-46.0); LYMPH % 25.5 % (9.0-44.0); LYMPHOCYTE # 2.9 TH/MM3 (1.0-4.8); MEAN CELL VOLUME 91.3 FL (80.0-100.0); MEAN CORPUSCULAR HEMOGLOBIN 30.6 PG (27.0-34.0); MEAN CORPUSCULAR HGB CONC 33.5 % (32.0-36.0); MEAN PLATELET VOLUME 8.7 FL (7.0-11.0); MONOCYTE # 0.7 TH/MM3 (0-0.9); NEUT % 67.3 % (16.0-70.0); PLATELET COUNT 345 TH/MM3 (150-450); RED BLOOD COUNT 4.56 MIL/MM3 (4.00-5.30); RED CELL DISTRIBUTION WIDTH 13.6 % (11.6-17.2); WHITE BLOOD COUNT 11.5 TH/MM3 (4.0-11.0)
--- NOTE | 2018-02-01 00:29 | RADRPT ---
EXAM DATE/TIME: 01/31/2018 23:54 [facility] COMPARISON: CT PULMONARY ANGIOGRAM, January 21, 2018, 22:25. CHEST SINGLE AP, January 21, 2018, 18:10. INDICATIONS : Shortness of breath. MEDICAL HISTORY : Hypertension. Diabetes mellitus type II. SURGICAL HISTORY : Cholecystectomy. Appendectomy. section. ENCOUNTER: Initial ACUITY: 1 day PAIN SCORE: 0/10 LOCATION: Bilateral chest FINDINGS: A single view of the chest demonstrates the lungs to be symmetrically aerated without evidence of mas s, infiltrate or effusion. The cardiomediastinal contours are unremarkable. Osseous structures are intact. CONCLUSION: No acute disease. Bebeto Mar Jr., MD on February 01, 2018 at 0:26 Board Certified Radiologist. This report was verified electronically.
[2018-02-01 00:36] LABS: PROTHROMBIN TIME - PATIENT 10.3 SEC (9.8-11.6)
[2018-02-01 00:46] LABS: ALBUMIN 2.9 GM/DL (3.4-5.0); AST (GOT) 13 U/L (15-37); BICARBONATE 24.9 MEQ/L (21.0-32.0); BLOOD UREA NITROGEN 9 MG/DL (7-18); CHLORIDE 106 MEQ/L (98-107); CREATININE 0.82 MG/DL (0.50-1.00); GLOMERULAR FILTRATION RATE 71 ML/MIN (>89); GLUCOSE,RANDOM 262 MG/DL (74-106); SODIUM (NA) 142 MEQ/L (136-145)
[2018-02-01 00:56] LABS: ALKALINE PHOSPHATASE 98 U/L (45-117); ALT (GPT) 35 U/L (10-53); TOTAL BILIRUBIN ADULT 0.5 MG/DL (0.2-1.0); TOTAL PROTEIN 6.3 GM/DL (6.4-8.2); TROPONIN I 0.02 NG/ML (0.02-0.05)
[2018-02-01] MEDS ORDERED: POTASSIUM CHLOR 20 MEQ PREMIX 100 ML IV ONE (01:00)
[2018-02-01] MEDS ORDERED: POTASSIUM CHLORIDE 20 MEQ CONTROLLED RELEASE TAB PO ONE (01:00)
[2018-02-01] MEDS ORDERED: POTA10CA PO (02:38)
[2018-02-01] MEDS ORDERED: ZOFR4TAB3 SL (02:38)
--- NOTE | 2018-02-01 16:55 | EKG ---
Date Performed: 01/31/2018 Time Performed: 23:04:14 PTAGE: 62 years EKG: Sinus rhythm RIGHT BUNDLE BRANCH BLOCK ABNORMAL ECG Since the PREVIOUS TRACING , no significant change noted PREVIOUS TRACIN01/21/2018 18.14 DOCTOR: Donnie Martinez Interpretating Date/Time 02/01/2018 16:50:29
== END 2018-02-01 03:25 | disposition home or self-care (01) ==
LOC: NEPC 22:27
DX: E87.6 Hypokalemia (principal); B34.9 Viral infection, unspecified; R06.02 Shortness of breath; E11.9 Type 2 diabetes mellitus without complications; J44.9 Chronic obstructive pulmonary disease, unspecified; M79.7 Fibromyalgia; F17.200 Nicotine dependence, unspecified, uncomplicated; Z79.4 Long term (current) use of insulin
CPT/HCPCS: 71045; 80053; 82550; 83880; 84443; 84484; 85025; 85610; 85730; 87804; 93005; 94664; 96365; 96366; 96375; 99285; J2270; J2405; J3480